=== PATIENT | male | born 1980 | race Caucasian/White ===

== ENCOUNTER → 2020-02-21 | Outpatient (CLI) | payer BC ==
--- NOTE | 2020-02-22 22:35 | MR ---
EXAMINATION TYPE: MR shoulder RT wo con DATE OF EXAM: 02/21/2020 COMPARISON: Radiographs 01/27/2020. HISTORY: Right shoulder pain TECHNIQUE: Multiplanar, multisequence imaging of the right shoulder is performed without contrast. FINDINGS: Rotator Cuff: There is low to moderate grade partial thickness articular surface tear of the supraspi natus tendon anterior fibers at the foot pain. The subscapularis, infraspinatus and teres minor tendo ns are grossly preserved. No significant muscular edema or atrophy. Acromioclavicular Joint: Intact. Glenohumeral Joint: Otherwise intact. Labrum: There is tear of the superior glenoid labrum from approximately 9 to 12:00 position. There is approximately 4.3 x 1.5 cm posterior paralabral cyst, coursing along the spinoglenoid notch. Biceps Tendon: The long head of biceps is in normal location within bicipital groove. Bone marrow signal: No focal abnormal marrow signal is appreciated. Other: No additional significant abnormality is appreciated. IMPRESSION: Low to moderate grade partial-thickness tear of the supraspinatus tendon anterior fibers of the foot pain. Posterior SLAP tear with 4.3 cm paralabral cyst, coursing along the spinal glenoid notch. No signific ant muscle atrophy or denervation edema.
== END | disposition home or self-care (01) ==
LOC: RADMRIMAIN 13:14
PROVIDERS: ATTEND Orthopaedic Surgery
DX: M75.111 Incomplete rotator cuff tear or rupture of right shoulder, not specified as traumatic (principal); S43.431A Superior glenoid labrum lesion of right shoulder, initial encounter

== ENCOUNTER → 2020-04-30 | Outpatient (CLI) | payer BC ==
[2020-04-30 09:29] LABS: Basophils # (A) 0.1 k/uL (0-0.2); Basophils % (A) 1 %; Eosinophils # (A) 0.2 k/uL (0-0.7); Eosinophils % (A) 4 %; HCT 46.1 % (39.0-53.0); HGB 15.2 gm/dL (13.0-17.5); Lymphocytes # (A) 2.2 k/uL (1.0-4.8); Lymphocytes % (A) 39 %; MCH 29.1 pg (25.0-35.0); MCHC 32.9 g/dL (31.0-37.0); MCV 88.4 fL (80.0-100.0); Mean Platelet Volume 6.9; Monocytes # (A) 0.4 k/uL (0-1.0); Monocytes % (A) 8 %; Neutrophils # (A) 2.7 k/uL (1.3-7.7); Neutrophils % (A) 47 %; Platelet Count 223 k/uL (150-450); RBC 5.22 m/uL (4.30-5.90); RDW 12.2 % (11.5-15.5); WBC 5.7 k/uL (3.8-10.6)
[2020-04-30 09:42] LABS: Potassium 4.5 mmol/L (3.5-5.1)
== END | disposition home or self-care (01) ==
LOC: LABPAT 08:25
PROVIDERS: ATTEND Orthopaedic Surgery
DX: Z01.818 Encounter for other preprocedural examination (principal); M75.41 Impingement syndrome of right shoulder
CPT/HCPCS: 36415; 80051; 85025

== ENCOUNTER 2020-05-08 06:12 | Day surgery (SDC) | payer BC ==
[2020-05-04 16:09] VITALS: BMI 24.2
--- NOTE | 2020-05-07 13:30 | HP ---
HISTORY AND PHYSICAL CHIEF COMPLAINT: Right shoulder pain. HISTORY OF PRESENT ILLNESS: Patient is a 39-year-old right-hand dominant gentleman who presents with right shoulder pain after an injury approximately 8 months ago. He hurt himself while jet skiing. He notes posterior pain along with difficulty with range of motion ever since. He is having intermittent night symptoms. He has been taking Aleve for this. He did injure the same shoulder 20 years ago. PAST MEDICAL HISTORY: Negative. CURRENT MEDICATIONS: 1. Aleve. 2. Ezetimibe. ALLERGIES: He denies drug allergies. FAMILY HISTORY: Negative. SOCIAL HISTORY: Negative for current tobacco or alcohol use. REVIEW OF SYSTEMS: Sixteen-point review of systems otherwise reviewed and is noncontributory. PHYSICAL EXAMINATION: On examination, the patient is approximately 5 feet 6 inches, 140 pounds of mesomorphic habitus. HEENT exam is nonfocal. Neck is supple. On the right shoulder, he is tender about the anterior subacromial space. He has moderate subacromial crepitus. Active range of motion forward elevation 145 degrees, external rotation with the arm at side 70 degrees, internal rotation to L1. Motor strength is 5/5 for abduction and external rotation. Impingement test is positive. Neer test is positive. Speed test is positive. His distal neurovascular exam appears intact in the right upper extremity. MRI report right shoulder from 02/21/2020 shows a large posterior ganglion cyst along with posterior superior labral tear and partial-thickness tear of the supraspinatus. IMPRESSION: 1. Right shoulder impingement with partial-thickness rotator cuff tear. 2. Right shoulder posterior ganglion cyst/spinoglenoid cyst. 3. Right shoulder posterior labral tear. RECOMMENDATIONS: I talked to the patient at length regarding his condition and treatment options. At this point, he is quite symptomatic and opts to proceed with surgery. We will plan to proceed with arthroscopic evaluation with probable subacromial decompression, rotator cuff debridement versus repair, and in addition to possible labral debridement versus repair. Risks and benefits were discussed at length in layman's terms. We will likely perform that as an outpatient procedure. MMODL / IJN: [id number] /
[2020-05-08 06:50] VITALS: RESP 16
[2020-05-08] MEDS ORDERED: LACTATED RINGERS 1,000 ML IV ONE (07:03)
[2020-05-08] MEDS ORDERED: ONDANSETRON 4 MG/2 ML VIAL ONE (07:05)
[2020-05-08] MEDS ORDERED: LIDOCAINE 1% (10MG/ML) FOR IV START INTRADERMA ONE (07:15)
[2020-05-08] MEDS ORDERED: DEXAMETHASONE SOD PHOSPHATE 4 MG/ML 1 ML VIAL IVP ONE (07:15)
[2020-05-08] MEDS ORDERED: ONDANSETRON 4 MG/2 ML VIAL IVP ONE (07:15)
[2020-05-08] MEDS ORDERED: fentaNYL (PF) 50 MCG/ML 2 ML AMP IV ONE (07:18)
[2020-05-08] MEDS ORDERED: MIDAZOLAM 2 MG/2 ML VIAL IV ONE (07:18)
[2020-05-08] MEDS ORDERED: fentaNYL (PF) 50 MCG/ML 2 ML AMP ONE (07:53)
[2020-05-08] MEDS ORDERED: SUCCINYLCHOLINE CHLORIDE 100 MG/5 ML SYR IV ONE (07:53)
[2020-05-08] MEDS ORDERED: ROPIVACAINE 5 MG/ML 30 ML VIAL ONE (07:53)
[2020-05-08] MEDS ORDERED: MIDAZOLAM 2 MG/2 ML VIAL ONE (07:53)
[2020-05-08] MEDS ORDERED: LIDOCAINE 1% INJ 10MG/ML (20 ML MDV) ONE (07:53)
[2020-05-08] MEDS ORDERED: PROPOFOL 10 MG/ML 20 ML VIAL IV ONE (07:53)
[2020-05-08] MEDS ORDERED: EPINEPHrine (PF) 1 ML in SODIUM CHLORIDE 0.9% IRRIGATIO 3,000 ML IRRIGATION ONE ×8 (08:10)
--- NOTE | 2020-05-08 09:05 | P.OP ---
Date of Procedure: 05/08/20 Preoperative Diagnosis: Right shoulder impingement/posterior labral tear/spinoglenoid cyst Postoperative Diagnosis: Same Procedure(s) Performed: Right shoulder arthroscopic subacromial decompression/posterior labral debridement Anesthesia: marie BONILLA Surgeon: Ambrosio Hall Baccarat Manager #1: Heber Gonzáles Estimated Blood Loss (ml): 10 Pathology: none sent Condition: stable Disposition: PACU Indications for Procedure: The patient's a 39-year-old male who presents with persistent/progressive right shoulder pain after previous injury. Upon evaluation he was noted have symptomatic impingement along with a spinoglenoid cyst with some neurologic fin dings. A discussion of the risks and benefits of operative intervention versus continued conservative measures was made with patient. He opted proceed. Operative risks to include infection, neurovascular injury, development of blood clots, possible incomplete resolution of symptoms, possible recurrence, possible need for subsequent procedures was discussed. Informed consent was obtained. Operative Findings: as below Description of Procedure: The patient was brought to the operating room, and after induction of general anesthesia was placed in a beachchair position. A preoperative interscalene block was placed for postoperative analgesia. I examined the right shoulder. There was no gross block to passive motion or gross glenohumeral instability. The right upper extremity was prepped and draped in normal fashion. The bony outlines the acromion, distal clavicle, and coracoid process were outlined with a skin marker. The glenohumeral joint was inflated with 50 mL of saline utilizing a spinal needle from posterior approach. A posterior portal was made through a 5 mm skin incision 1 cm medial and inferior to the posterior lateral border time. A blunt trocar was used to easily into the joint. Diagnostic arthroscopy was performed. An anterior portal was made just lateral to the coracoid process entering the joint above the subscapularis tendon. The subscapularis tendon appeared to be intact. Anterior labrum was intact. The inferior recess was inspected. The posterior labrum was frayed and an intracapsular tear was noted. This was debrided back to stable base with a motorized shaver. I was able to express gelatinous fluid from the spinal glenoid cyst. On inspection the rotator cuff, it was intact on the articular surface. The arthroscope was placed into the subacromial space. Significant bursal thickening was noted. A lateral portal was made 2 centimeters inferior to the anterior lateral border of the acromion. The soft tissue on the undersurface of the acromion was debrided with a motorized shaver and electrocautery clearly defining the anterior medial and lateral borders as well as the distal clavicle. An anterior inferior acromioplasty was performed with a motorized harleen starting anterolateral, then extending this posteriorly, then extending this medially. I converted to a flat acromion and this was verified in the posterior and lateral viewing portals. The rotator cuff appeared intact on the bursal surface. The arthroscope was then removed. The portals were closed with simple 3-0 nylon sutures. A sterile dressing was applied in addition to a sling. The patient was then awoken from general anesthesia and transferred to recovery room in good condition. Blood loss was estimated at 10 mL. No complications were incurred. Sponge and needle counts were correct in the case. Grant LE assisted and the major components of the case to include arm positioning, decompression, and bursectomy.
[2020-05-08 09:14] VITALS: TEMP 96.8
--- NOTE | 2020-05-08 09:16 | P.ANPRN ---
Procedure Note - Anesthesia - Nerve Block Performed Right Interscalene Single Time Out Performed: Yes ([id number]) Date of Procedure: 05/08/20 Procedure Start Time: 07:48 Procedure Stop Time: 07:54 Location of Patient: PreOp Indication: Acute Post-Operative Pain, Requested by Surgeon Specifically requested for management of pain by : Ambrosio Hall Sedation Type: Sedate with meaningful contact maintained Preparation: Sterile Prep Position: Supine Catheter: None Needle Types: Pajunk Needle Gauge: 21 Ultrasound used to visualize needle placement: Yes Ultrasound used to observe medication spread: Yes Injectate: 0.5% Ropivacaine (see comment for volume) (30cc) Blood Aspirated: No Pain Paresthesia on Injection Noted: No Resistance on Injection: Normal Image Stored and Saved: Yes Events: Uneventful and Well Tolerated
[2020-05-08 10:24] VITALS: BP 117/81; PULSE 83
== END 2020-05-08 10:59 | disposition home or self-care (01) ==
LOC: OR 06:12
PROVIDERS: ATTEND Orthopaedic Surgery
DX: S43.431A Superior glenoid labrum lesion of right shoulder, initial encounter (principal); X58.XXXA Exposure to other specified factors, initial encounter; Y93.19 Activity, other involving water and watercraft; E78.5 Hyperlipidemia, unspecified; Z79.1 Long term (current) use of non-steroidal anti-inflammatories (NSAID); Z79.899 Other long term (current) drug therapy
CPT/HCPCS: 64415; 76942; 29822; J2250; J1100; J0690; J2405; J0171; J2001; J3010; J2795; J0330; J2704